=== PATIENT | male | born 1945 | race Native Hawaiian/Other Pacific Islander ===

== ENCOUNTER 2016-12-13 15:27 | Emergency (ER) | payer OTHER ==
[~2016-12-13] VITALS: Ht 172.7 cm; Wt 88.5 kg
[~2016-12-13 15:27] MED LIST: AMLO2.5T PO; COZAAR25 MG PO; PAXIL40 MG PO; TAMS0.4C PO
[2016-12-13 15:35] VITALS: BP 140/89; TEMP 98
[2016-12-13 16:11] LABS: PLATELET COUNT 312 K/uL (142-355)
[2016-12-13 16:20] LABS: POTASSIUM 2.7 mmol/L (3.6-5.2)
== END 2016-12-13 18:19 | disposition home or self-care (01) ==
LOC: ED 15:27
DX: N20.1 Calculus of ureter (principal); R31.9 Hematuria, unspecified; N20.0 Calculus of kidney; N40.0 Benign prostatic hyperplasia without lower urinary tract symptoms
CPT/HCPCS: 36415; 80053; 81000; 85027; 96374; 96375; 99284; J2550

== ENCOUNTER 2017-01-11 01:07 | Emergency (ER) | payer OTHER ==
[~2017-01-11] VITALS: Ht 172.7 cm; Wt 85.3 kg
[2017-01-11 01:42] LABS: PLATELET COUNT 310 K/uL (142-355)
[2017-01-11 02:43] VITALS: BP 152/72; TEMP 98.5
== END 2017-01-11 02:48 | disposition home or self-care (01) ==
LOC: ED 01:07
DX: N23 Unspecified renal colic (principal); E79.0 Hyperuricemia without signs of inflammatory arthritis and tophaceous disease; M10.9 Gout, unspecified
CPT/HCPCS: 36415; 81000; 84550; 85027; 96361; 96374; 99284; J2175

== ENCOUNTER 2017-02-21 02:25 | Emergency (ER) | payer OTHER ==
[~2017-02-21] VITALS: Ht 172.7 cm; Wt 79.4 kg
[2017-02-21 04:26] VITALS: BP 138/68; TEMP 98.6
== END 2017-02-21 04:32 | disposition home or self-care (01) ==
LOC: ED 02:25
DX: N20.1 Calculus of ureter (principal); N23 Unspecified renal colic
CPT/HCPCS: 81000; 87086; 87088; 96361; 96374; 96375; 99284; J1170; J2405

== ENCOUNTER 2017-03-30 07:33 | Outpatient (CLI) | payer OTHER | END 2017-03-30 19:08 | disposition home or self-care (01) | LOC: NM 07:33 | DX: Z01.818 Encounter for other preprocedural examination (principal) ==

== ENCOUNTER 2017-04-06 07:22 | Outpatient (CLI) | payer OTHER ==
[~2017-04-06] VITALS: Ht 172.7 cm; Wt 79.4 kg
== END 2017-04-06 09:30 | disposition home or self-care (01) ==
LOC: NM 07:22
DX: R07.89 Other chest pain (principal)
CPT/HCPCS: A9500; J2785

== ENCOUNTER 2017-08-01 12:46 | Emergency (ER) | payer OTHER ==
[~2017-08-01] VITALS: Ht 172.7 cm; Wt 88.5 kg
[2017-08-01 15:00] VITALS: BP 135/74; TEMP 98.5
== END 2017-08-01 15:00 | disposition home or self-care (01) ==
LOC: ED 12:46
DX: N40.0 Benign prostatic hyperplasia without lower urinary tract symptoms (principal); Z87.442 Personal history of urinary calculi; E87.6 Hypokalemia
CPT/HCPCS: 81000; 96372; 99283; J2175; J2550

== ENCOUNTER 2017-08-15 10:16 | Emergency (ER) | payer OTHER ==
[~2017-08-15] VITALS: Ht 172.7 cm; Wt 86.2 kg
[2017-08-15 11:04] LABS: PLATELET COUNT 314 K/uL (142-355)
[2017-08-15 11:21] LABS: POTASSIUM 2.7 mmol/L (3.6-5.2)
[2017-08-15 11:47] VITALS: BP 137/65; TEMP 97.7
== END 2017-08-15 11:47 | disposition home or self-care (01) ==
LOC: ED 10:16
DX: R10.84 Generalized abdominal pain (principal); D64.89 Other specified anemias
CPT/HCPCS: 36415; 80053; 82272; 85027; 99283

== ENCOUNTER 2017-12-21 14:15 | Emergency (ER) | payer OTHER ==
[~2017-12-21] VITALS: Ht 172.7 cm; Wt 78.9 kg
[2017-12-21 14:27] VITALS: BP 155/53; TEMP 98.7
== END 2017-12-21 15:27 | disposition home or self-care (01) ==
LOC: ED 14:15
DX: Z87.442 Personal history of urinary calculi (principal)
CPT/HCPCS: 99281

== ENCOUNTER 2018-02-20 04:49 | Emergency (ER) | payer OTHER ==
[~2018-02-20] VITALS: Ht 172.7 cm; Wt 77.1 kg
[2018-02-20 04:57] VITALS: TEMP 97.9
[2018-02-20 05:32] LABS: PLATELET COUNT 389 K/uL (142-355)
[2018-02-20 05:40] LABS: POTASSIUM 2.8 mmol/L (3.6-5.2)
[2018-02-20 06:39] VITALS: BP 171/73
== END 2018-02-20 06:42 | disposition home or self-care (01) ==
LOC: ED 04:49
DX: N20.0 Calculus of kidney (principal); K52.89 Other specified noninfective gastroenteritis and colitis
CPT/HCPCS: 36415; 80053; 81000; 85027; 96372; 99283; J2930

== ENCOUNTER 2018-03-22 11:06 | Emergency (ER) | payer OTHER ==
[~2018-03-22] VITALS: Ht 172.7 cm; Wt 72.6 kg
[2018-03-22] MEDS ORDERED: FERROUS SULF324 MG PO (11:24)
[2018-03-22] MEDS ORDERED: CLON1TAB18 PO (11:25)
[2018-03-22] MEDS ORDERED: METOPROLOL25 M1 PO (11:26)
[2018-03-22 12:14] LABS: PLATELET COUNT 331 K/uL (142-355)
[2018-03-22 12:30] LABS: POTASSIUM 2.8 mmol/L (3.6-5.2)
[2018-03-22 16:00] VITALS: BP 150/60; TEMP 97.8
== END 2018-03-22 16:00 | disposition home or self-care (01) ==
LOC: ED 11:06
PROVIDERS: Family Medicine
DX: E87.6 Hypokalemia (principal)
CPT/HCPCS: 36415; 80053; 80307; 81000; 85027; 96374; 99283; J1885

== ENCOUNTER 2018-09-15 18:24 | Emergency (ER) | payer OTHER ==
[~2018-09-15] VITALS: Ht 172.7 cm; Wt 83.5 kg
[~2018-09-15 18:24] MED LIST changes: +CLON1TAB18 PO; +FERROUS SULF324 MG PO; +METOPROLOL25 M1 PO
[2018-09-15 18:57] VITALS: TEMP 97.8
[2018-09-15 20:10] LABS: PLATELET COUNT 226 K/uL (142-355)
[2018-09-15 20:15] LABS: POTASSIUM 3.2 mmol/L (3.6-5.2)
[2018-09-15 21:35] VITALS: BP 158/67
== END 2018-09-15 21:35 | disposition home or self-care (01) ==
LOC: ED 18:24
PROVIDERS: Internal Medicine
DX: R41.0 Disorientation, unspecified (principal); E87.6 Hypokalemia; N18.9 Chronic kidney disease, unspecified
CPT/HCPCS: 36415; 80053; 81000; 85027; 99283

== ENCOUNTER 2019-05-30 08:50 | Outpatient (CLI) | payer OTHER | END 2019-05-30 23:15 | disposition home or self-care (01) | LOC: MAMMO 08:50 | DX: N63.20 Unspecified lump in the left breast, unspecified quadrant (principal) ==

== ENCOUNTER 2019-06-28 07:34 | Inpatient (IN) | payer OTHER ==
[~2019-06-28] VITALS: Ht 172.7 cm; Wt 94.9 kg
[2019-06-28 08:27] LABS: PLATELET COUNT 216 K/uL (142-355)
[2019-06-28 08:36] LABS: POTASSIUM 2.7 mmol/L (3.6-5.2)
[2019-06-28] MEDS ORDERED: METO50TA27 PO (19:06)
[2019-06-28] MEDS ORDERED: ALLO100T22 PO (19:06)
[2019-06-28] MEDS ORDERED: POTASSIUM CHLO10 ME1 PO (19:08)
[2019-06-28] MEDS ORDERED: BUPR8SUB2 PO (19:09)
[2019-06-28 19:18] VITALS: BP 133/61; TEMP 98.4; Ht 172.7 cm; Wt 94.9 kg
[2019-06-28 21:01] VITALS: BP 109/42; TEMP 98.5
[2019-06-29] VITALS: BP 141/57; TEMP 98.4
[2019-06-29 04:00] VITALS: BP 138/74; TEMP 98.2
[2019-06-29 05:27] LABS: POTASSIUM 3.4 mmol/L (3.6-5.2)
[2019-06-29 08:00] VITALS: BP 160/63; TEMP 97.9
== END 2019-06-29 12:30 | disposition home or self-care (01) | DRG 641 ==
LOC: OR 07:34 → MED/SURG 10:51
PROVIDERS: Student in an Organized Health Care Education/Training Program; ADMIT Internal Medicine
DX: E87.6 Hypokalemia (principal); N17.8 Other acute kidney failure; K51.80 Other ulcerative colitis without complications; N63.0 Unspecified lump in unspecified breast; M10.9 Gout, unspecified; F32.89 Other specified depressive episodes; I10 Essential (primary) hypertension
CPT/HCPCS: 36415; 80048; 80053; 83735; 85027; 93005; J0132; J2765; J3010; J3490

== ENCOUNTER 2019-07-04 08:06 | Outpatient (CLI) | payer OTHER ==
[~2019-07-04 08:06] MED LIST changes: +ALLO100T22 PO; +BUPR8SUB2 PO; +METO50TA27 PO; +POTASSIUM CHLO10 ME1 PO
[2019-07-04 14:04] LABS: PLATELET COUNT 239 K/uL (142-355)
[2019-07-04 14:08] LABS: POTASSIUM 3.5 mmol/L (3.6-5.2)
== END 2019-07-04 20:13 | disposition home or self-care (01) ==
LOC: RESP 08:06 → LAB 08:06 → RESP 20:13
PROVIDERS: Nurse Practitioner
DX: E87.6 Hypokalemia (principal); I10 Essential (primary) hypertension; R01.1 Cardiac murmur, unspecified
CPT/HCPCS: 80048; 85027; 93306

== ENCOUNTER 2019-07-05 07:31 | Day surgery (SDC) | payer OTHER ==
[~2019-07-05] VITALS: Ht 30.5 cm; Wt 0.5 kg
== END 2019-07-05 10:45 | disposition home or self-care (01) ==
LOC: OR 07:31
PROC: 0HBU3ZX Excision of Left Breast, Percutaneous Approach, Diagnostic (ICD-10-PCS; principal; 2019-07-05)
DX: N60.32 Fibrosclerosis of left breast (principal)
CPT/HCPCS: J0132; J0690; J1100; J2001; J2250; J2405; J2704; J2765; J3490

== ENCOUNTER 2019-07-11 20:47 | Emergency (ER) | payer OTHER ==
[~2019-07-11] VITALS: Ht 172.7 cm; Wt 90.7 kg
[2019-07-11 21:35] LABS: PLATELET COUNT 263 K/uL (142-355)
[2019-07-11 21:51] LABS: POTASSIUM 3.1 mmol/L (3.6-5.2); SODIUM 139 mmol/L (136-145)
[2019-07-11 23:39] VITALS: BP 184/86; TEMP 97.2
== END 2019-07-11 23:50 | disposition home or self-care (01) ==
LOC: ED 20:47
PROVIDERS: Emergency Medicine
DX: K52.89 Other specified noninfective gastroenteritis and colitis (principal)
CPT/HCPCS: 36415; 80053; 81000; 82150; 82550; 83690; 83735; 84484; 85027; 96365; 96375; 99284; J2405; J3490

== ENCOUNTER 2022-03-24 08:21 | Outpatient (CLI) | payer OTHER | END 2022-03-24 19:27 | disposition home or self-care (01) | LOC: US 08:21 | PROVIDERS: ATTEND Internal Medicine | DX: R22.32 Localized swelling, mass and lump, left upper limb (principal) ==

== ENCOUNTER 2022-03-31 16:31 | Outpatient (CLI) | payer OTHER | END 2022-03-31 18:56 | disposition home or self-care (01) | LOC: RAD 16:31 | PROVIDERS: ATTEND Internal Medicine | DX: R06.02 Shortness of breath (principal); R05.3 Chronic cough ==

== ENCOUNTER 2022-04-06 08:19 | Outpatient (CLI) | payer OTHER | END 2022-04-06 18:57 | disposition home or self-care (01) | LOC: CT 08:19 | PROVIDERS: ATTEND Internal Medicine | DX: R59.0 Localized enlarged lymph nodes (principal) | CPT/HCPCS: 36415; 82565; 84520; Q9963 ==

== ENCOUNTER 2022-04-09 07:42 | Outpatient (CLI) | payer OTHER | END 2022-04-09 19:12 | disposition home or self-care (01) | LOC: CT 07:42 | PROVIDERS: ATTEND Internal Medicine | DX: R59.0 Localized enlarged lymph nodes (principal) | CPT/HCPCS: 36415; 82565; 84520 ==

== ENCOUNTER 2022-09-06 10:58 | Emergency (ER) | payer OTHER ==
[~2022-09-06] VITALS: Ht 172.7 cm; Wt 97.5 kg
[2022-09-06 10:58] VITALS: TEMP 98.9
[2022-09-06 14:31] LABS: POTASSIUM 3.9 mmol/L (3.6-5.2)
[2022-09-06 15:13] LABS: PLATELET COUNT 144 K/uL (142-355)
[2022-09-06 18:00] VITALS: BP 134/94
== END 2022-09-06 18:21 | disposition short-term general hospital (02) ==
LOC: ED 10:58
PROVIDERS: Emergency Medicine
DX: K22.2 Esophageal obstruction (principal); I50.9 Heart failure, unspecified; N18.9 Chronic kidney disease, unspecified; R77.8 Other specified abnormalities of plasma proteins
CPT/HCPCS: 80053; 83690; 83880; 84484; 85027; 93005; 96372; 99284; J1610; J1940; J2060